=== PATIENT | female | born 1935 | race Asian ===

== ENCOUNTER 2021-11-06 14:48 | Inpatient (IN) | payer MEDICARE, OTHER ==
[~2021-11-06] VITALS: Ht 152.4 cm; Wt 47.2 kg
[~2021-11-06 14:48] MED LIST: ACAR50TA5 PO; ACET-2080 PO; ASPI-2 PO; CHOL20002 PO; CLOP75TA60 PO; GLYB2.5T5 PO; LOVA40TA PO; METF-446 PO; METO-327 PO; RISE150T PO; VALS160T2 PO; VITA400C70 PO
[2021-11-06 17:39] LABS: BASOPHILS % (AUTO) 0.7 % (0.0-2.0); EOSINOPHILS % (AUTO) 1.7 % (1.0-6.0); HEMATOCRIT 33.8 % (36-46); HEMOGLOBIN 11.6 g/dL (12.0-16.0); LYMPHOCYTES # (AUTO) 0.6 K/uL (1.0-4.8); LYMPHOCYTES % (AUTO) 23.6 % (22.0-44.0); MEAN CORPUSCULAR HEMOGLOBIN 32.1 pg (26.0-34.0); MEAN CORPUSCULAR HGB CONC 34.2 G/dL (31.0-37.0); MEAN CORPUSCULAR VOLUME 94 fL (80-100); MONOCYTES # (AUTO) 0.5 K/uL (0.1-1.0); MONOCYTES % (AUTO) 16.5 % (2.0-9.0); NEUTROPHILS # (AUTO) 1.6 K/uL (1.8-7.7); NEUTROPHILS % (AUTO) 57.5 % (40.0-70.0); PLATELET COUNT (AUTO) 126 K/uL (150-450); RED BLOOD CELL COUNT(AUTO) 3.61 MIL/uL (4.00-5.20); RED CELL DISTRIBUTION WIDTH 13.8 % (11.5-14.5)
[2021-11-06 17:40] LABS: COVID AG,FIA SOURCE NASOPHARYNGEAL
[2021-11-06 17:46] LABS: ANION GAP 5 mmol/L (8-16); CALCIUM, TOTAL 9.3 mg/dL (8.8-10.5); CARBON DIOXIDE 26 mmol/L (22-29); CHLORIDE 108 mmol/L (98-107); GLOMERULAR FILTR. RATE CALC > 60 mL/min (>60); GLUCOSE,RANDOM 124 mg/dL (70-110); POTASSIUM 3.4 mmol/L (3.5-5.1); SODIUM SERUM 139 mmol/L (136-145); UREA NITROGEN, BLOOD 17 mg/dL (7-18)
[2021-11-06 17:48] LABS: D-DIMER 0.6 mg/L FEU (0.00-0.50); PROTHROMBIN TIME 10.4 SEC (9.4-11.6)
[2021-11-06 17:53] LABS: LACTIC ACID 0.6 mmol/L (0.4-2.0)
[2021-11-06 18:04] LABS: ALANINE AMINOTRANSFERASE 21 U/L (12-78); ALBUMIN 2.6 g/dL (3.4-5.0); ALKALINE PHOSPHATASE 69 U/L (46-116); ASPARTATE AMINOTRANSFERASE 18 U/L (15-37); BILIRUBIN,TOTAL 0.2 mg/dL (0.1-1.0); FERRITIN 77 ng/mL (8-252); LACTATE DEHYDROGENASE 160 U/L (81-234); LIPASE 166 U/L (73-393); TOTAL PROTEIN, SERUM 5.8 g/dL (6.4-8.2)
[2021-11-06 18:10] LABS: B-TYPE NATRIURETIC PEPTIDE 40 pg/mL (0-100)
[2021-11-06 18:10] LABS: INFLUENZA TYPE A NEGATIVE FOR TYPE A (NEGATIVE); INFLUENZA TYPE B NEGATIVE FOR TYPE B (NEGATIVE)
[2021-11-06] MEDS ORDERED: AZITHROMYCIN 500 MG/NS 250 ML IV ONE (18:30)
[2021-11-06] MEDS ORDERED: CefTRIAXone 1 GM/DEXTROSE 50 ML IV ONE (18:30)
[2021-11-06] MEDS ORDERED: ACETAMINOPHEN 500 MG TABLET PO ONE (18:30)
[2021-11-06] MEDS ORDERED: SODIUM CHLORIDE 0.9% 1,300 ML IV ONE (18:30)
[2021-11-06] MEDS ORDERED: 0.9% SODIUM CHLORIDE 10 ML SYRINGE IVP PRN (18:30)
[2021-11-06 19:06] LABS: APPEARANCE,URINE CLEAR (CLEAR); BILIRUBIN,URINE NEGATIVE (NEGATIVE); GLUCOSE, URINE (UA) NEGATIVE (NEGATIVE); KETONES,URINE NEGATIVE (NEGATIVE); LEUKOCYTE ESTERASE ,URINE NEGATIVE (NEGATIVE); NITRATE,URINE POSITIVE (NEGATIVE); OCCULT BLOOD,URINE NEGATIVE (NEGATIVE); PH,URINE 5.5 (5.0-8.0); PROTEIN,URINE NEGATIVE (NEGATIVE); UROBILINOGEN,URINE 0.2 mg/dL (<=1.0)
[2021-11-06 19:28] LABS: BACTERIA,URINE Moderate /HPF (None Seen); RBC,URINE 0-2 /HPF (0-2); WBC,URINE 0-2 /HPF (0-5)
[2021-11-06 19:29] LABS: SQUAMOUS EPITHELIAL CELL,UR Moderate /LPF (None Seen)
[2021-11-06] MEDS ORDERED: DEXTROSE 50%-WATER 25 GM/50 ML SYRINGE IVP PRN (22:00)
[2021-11-07 04:57] LABS: BASOPHILS % (AUTO) 0.3 % (0.0-2.0); EOSINOPHILS % (AUTO) 0.7 % (1.0-6.0); HEMATOCRIT 35.1 % (36-46); HEMOGLOBIN 11.9 g/dL (12.0-16.0); LYMPHOCYTES # (AUTO) 0.7 K/uL (1.0-4.8); LYMPHOCYTES % (AUTO) 20.8 % (22.0-44.0); MEAN CORPUSCULAR HEMOGLOBIN 32.3 pg (26.0-34.0); MEAN CORPUSCULAR HGB CONC 33.9 G/dL (31.0-37.0); MEAN CORPUSCULAR VOLUME 95 fL (80-100); MONOCYTES # (AUTO) 0.4 K/uL (0.1-1.0); MONOCYTES % (AUTO) 12.4 % (2.0-9.0); NEUTROPHILS # (AUTO) 2.3 K/uL (1.8-7.7); NEUTROPHILS % (AUTO) 65.8 % (40.0-70.0); PLATELET COUNT (AUTO) 114 K/uL (150-450); RED BLOOD CELL COUNT(AUTO) 3.69 MIL/uL (4.00-5.20); RED CELL DISTRIBUTION WIDTH 14.3 % (11.5-14.5)
[2021-11-07 05:34] LABS: ALANINE AMINOTRANSFERASE 17 U/L (12-78); ALBUMIN 2.6 g/dL (3.4-5.0); ALKALINE PHOSPHATASE 59 U/L (46-116); ANION GAP 5 mmol/L (8-16); ASPARTATE AMINOTRANSFERASE 19 U/L (15-37); BILIRUBIN,TOTAL 0.2 mg/dL (0.1-1.0); C-REACTIVE PROTEIN QUANT 0.42 mg/dL (0.00-0.30); CALCIUM, TOTAL 8.8 mg/dL (8.8-10.5); CARBON DIOXIDE 24 mmol/L (22-29); CHLORIDE 112 mmol/L (98-107); CREATININE 0.63 mg/dL (0.60-1.30); FERRITIN 85 ng/mL (8-252); GLUCOSE,RANDOM 117 mg/dL (70-110); POTASSIUM 3.4 mmol/L (3.5-5.1); SODIUM SERUM 141 mmol/L (136-145); TOTAL PROTEIN, SERUM 5.5 g/dL (6.4-8.2); UREA NITROGEN, BLOOD 12 mg/dL (7-18)
[2021-11-07 05:35] LABS: GLOMERULAR FILTR. RATE CALC > 60 mL/min (>60)
[2021-11-07] MEDS ORDERED: ACETAMINOPHEN 160 MG/5 ML SUSPENSION UDCUP PO ONE (05:45)
[2021-11-07] MEDS: ASPIRIN 325 MG TABLET PO SCH (08:13)
[2021-11-07 09:07] VITALS: BP 150/58
[2021-11-07] MEDS ORDERED: MIRT-93 PO (11:18)
[2021-11-07] MEDS ORDERED: HYDR-4174 PO (11:18)
[2021-11-07] MEDS ORDERED: INSNOV SQ (11:18)
[2021-11-07] MEDS ORDERED: AMLO5TAB66 PO (11:18)
[2021-11-07] MEDS ORDERED: RIVA20TA PO (11:18)
[2021-11-07] MEDS ORDERED: INSU3INS3 SQ (11:18)
[2021-11-07] MEDS ORDERED: VITA-244 PO (11:18)
[2021-11-07] MEDS ORDERED: ATOR20TA65 PO (11:18)
[2021-11-07] MEDS ORDERED: CHOL-35 PO (11:18)
[2021-11-07] MEDS ORDERED: TRAZ-252 PO (11:18)
[2021-11-07] MEDS ORDERED: CLON0.2T2 PO (11:18)
[2021-11-07] MEDS: CHOLECALCIFEROL (VIT D3) 1,000 UNITS [25 MCG] TABLET PO SCH (12:10)
[2021-11-07] MEDS: VITAMIN E 400 UNITS CAPSULE PO SCH (12:10)
[2021-11-07] MEDS: ATORVASTATIN CALCIUM 20 MG TABLET PO SCH (12:10)
[2021-11-07] MEDS: VALSARTAN 160 MG TABLET PO SCH (12:10)
[2021-11-07] MEDS: METOPROLOL SUCCINATE 50 MG ER TABLET PO SCH (12:10)
[2021-11-07 12:52] VITALS: BP 156/72
[2021-11-07] MEDS ORDERED: INFLUENZA VIRUS VACCINE QVS 2021-22 (6MO+)/PF 60 MCG/0.5 ML SYRINGE IM. ONE (13:15)
[2021-11-07] MEDS ORDERED: PNEUMOCOCCAL VACCINE POLYVALENT 0.5 ML VIAL [PPSV23] IM. ONE (13:15)
[2021-11-07 16:23] VITALS: BP 135/86
[2021-11-07] MEDS ORDERED: ACARBOSE 50 MG TABLET PO SCH (18:00)
[2021-11-07 20:16] VITALS: BP 107/69
[2021-11-07] MEDS ORDERED: CLOPIDOGREL BISULFATE 75 MG TABLET PO SCH (21:00)
[2021-11-08 00:01] LABS: GLUCOMETER DEV NAME(LOC) 5N.3; GLUCOSE,POINT OF CARE 100 MG/DL (70-110)
[2021-11-08 00:01] LABS: GLUCOMETER DEV NAME(LOC) 5N.3; GLUCOSE,POINT OF CARE 106 MG/DL (70-110)
[2021-11-08 00:02] LABS: GLUCOMETER DEV NAME(LOC) 5N.3; GLUCOSE,POINT OF CARE 169 MG/DL (70-110)
[2021-11-08 00:02] LABS: GLUCOMETER DEV NAME(LOC) 5N.3; GLUCOSE,POINT OF CARE 61 MG/DL (70-110)
[2021-11-08 00:15] VITALS: BP 124/75
[2021-11-08 04:32] VITALS: BP 124/58
[2021-11-08] MEDS ORDERED: POTASSIUM CHLORIDE 20 MEQ ER TABLET PO PRN (07:00)
[2021-11-08] MEDS ORDERED: POTASSIUM CHLORIDE 10% 40 MEQ/30 ML LIQUID UDCUP PO PRN (07:00)
[2021-11-08] MEDS ORDERED: POTASSIUM CHL 10 MEQ/WATER 50 ML IV PRN (07:00)
[2021-11-08] MEDS ORDERED: ACETAMINOPHEN 325 MG TABLET PO PRN (07:00)
[2021-11-08 07:30] VITALS: BP_SYST 131; BP_SYST 145; BP_DIAS 49; BP_DIAS 79
[2021-11-08 08:07] LABS: BASOPHILS % (AUTO) 0.4 % (0.0-2.0); EOSINOPHILS % (AUTO) 1.6 % (1.0-6.0); HEMATOCRIT 34.4 % (36-46); HEMOGLOBIN 11.8 g/dL (12.0-16.0); LYMPHOCYTES # (AUTO) 1.1 K/uL (1.0-4.8); LYMPHOCYTES % (AUTO) 43.7 % (22.0-44.0); MEAN CORPUSCULAR HEMOGLOBIN 32.2 pg (26.0-34.0); MEAN CORPUSCULAR HGB CONC 34.4 G/dL (31.0-37.0); MEAN CORPUSCULAR VOLUME 94 fL (80-100); MONOCYTES # (AUTO) 0.3 K/uL (0.1-1.0); MONOCYTES % (AUTO) 13.7 % (2.0-9.0); NEUTROPHILS % (AUTO) 40.6 % (40.0-70.0); PLATELET COUNT (AUTO) 130 K/uL (150-450); RED BLOOD CELL COUNT(AUTO) 3.67 MIL/uL (4.00-5.20); RED CELL DISTRIBUTION WIDTH 13.9 % (11.5-14.5)
[2021-11-08 08:39] LABS: ALANINE AMINOTRANSFERASE 18 U/L (12-78); ALBUMIN 2.5 g/dL (3.4-5.0); ALKALINE PHOSPHATASE 52 U/L (46-116); ANION GAP 4 mmol/L (8-16); ASPARTATE AMINOTRANSFERASE 20 U/L (15-37); BILIRUBIN,TOTAL 0.2 mg/dL (0.1-1.0); C-REACTIVE PROTEIN QUANT 0.67 mg/dL (0.00-0.30); CALCIUM, TOTAL 8.5 mg/dL (8.8-10.5); CARBON DIOXIDE 26 mmol/L (22-29); CHLORIDE 111 mmol/L (98-107); CREATININE 0.56 mg/dL (0.60-1.30); FERRITIN 121 ng/mL (8-252); POTASSIUM 3.3 mmol/L (3.5-5.1); SODIUM SERUM 141 mmol/L (136-145); TOTAL PROTEIN, SERUM 5.3 g/dL (6.4-8.2); UREA NITROGEN, BLOOD 9 mg/dL (7-18)
[2021-11-08 08:45] LABS: GLUCOSE,RANDOM 46 mg/dL (70-110)
[2021-11-08 08:46] LABS: GLOMERULAR FILTR. RATE CALC > 60 mL/min (>60)
[2021-11-08] MEDS: VALSARTAN 160 MG TABLET PO SCH (08:48)
[2021-11-08] MEDS: CHOLECALCIFEROL (VIT D3) 1,000 UNITS [25 MCG] TABLET PO SCH (08:48)
[2021-11-08] MEDS: ASPIRIN 325 MG TABLET PO SCH (08:48)
[2021-11-08] MEDS: VITAMIN E 400 UNITS CAPSULE PO SCH (08:49)
[2021-11-08] MEDS: ATORVASTATIN CALCIUM 20 MG TABLET PO SCH (08:49)
[2021-11-08] MEDS: METOPROLOL SUCCINATE 50 MG ER TABLET PO SCH (08:49)
[2021-11-08 11:30] VITALS: BP_SYST 130; BP_SYST 140; BP_DIAS 61; BP_DIAS 82
[2021-11-08 16:30] VITALS: BP 131/59
[2021-11-08] MEDS ORDERED: CALC-1038 PO (17:02)
[2021-11-08] MEDS ORDERED: ASCO500 PO (17:02)
[2021-11-08] MEDS ORDERED: ASPI-1450 PO (17:21)
[2021-11-08 17:22] LABS: GLUCOMETER DEV NAME(LOC) 5N.1C; GLUCOSE,POINT OF CARE 116 MG/DL (70-110)
[2021-11-08 17:22] LABS: GLUCOMETER DEV NAME(LOC) 5N.1C; GLUCOSE,POINT OF CARE 46 MG/DL (70-110)
[2021-11-08 19:54] VITALS: BP 123/51
[2021-11-08] MEDS: INSULIN GLARGINE,HUM.REC.ANLOG 100 UNITS/ML SQ SCH (21:00)
[2021-11-08] MEDS: SENNA/DOCUSATE SODIUM 8.6-50 MG TABLET PO SCH (21:00)
[2021-11-08] MEDS: TraZODone HCL 50 MG TABLET PO SCH (21:02)
[2021-11-09 00:13] VITALS: BP 106/56
[2021-11-09 05:31] VITALS: BP 139/61
[2021-11-09 07:10] VITALS: BP 140/65
[2021-11-09 08:11] LABS: BASOPHILS % (AUTO) 0.4 % (0.0-2.0); HEMATOCRIT 36.4 % (36-46); HEMOGLOBIN 12.5 g/dL (12.0-16.0); LYMPHOCYTES # (AUTO) 1.5 K/uL (1.0-4.8); LYMPHOCYTES % (AUTO) 53.7 % (22.0-44.0); MEAN CORPUSCULAR HGB CONC 34.3 G/dL (31.0-37.0); MEAN CORPUSCULAR VOLUME 93 fL (80-100); MONOCYTES # (AUTO) 0.3 K/uL (0.1-1.0); MONOCYTES % (AUTO) 11.2 % (2.0-9.0); NEUTROPHILS # (AUTO) 0.9 K/uL (1.8-7.7); NEUTROPHILS % (AUTO) 32.7 % (40.0-70.0); PLATELET COUNT (AUTO) 130 K/uL (150-450); RED BLOOD CELL COUNT(AUTO) 3.91 MIL/uL (4.00-5.20); RED CELL DISTRIBUTION WIDTH 13.9 % (11.5-14.5)
[2021-11-09 08:34] LABS: ALANINE AMINOTRANSFERASE 21 U/L (12-78); ALBUMIN 2.4 g/dL (3.4-5.0); ALKALINE PHOSPHATASE 58 U/L (46-116); ANION GAP 5 mmol/L (8-16); ASPARTATE AMINOTRANSFERASE 19 U/L (15-37); BILIRUBIN,TOTAL 0.2 mg/dL (0.1-1.0); C-REACTIVE PROTEIN QUANT 0.37 mg/dL (0.00-0.30); CARBON DIOXIDE 24 mmol/L (22-29); CHLORIDE 109 mmol/L (98-107); CREATININE 0.71 mg/dL (0.60-1.30); FERRITIN 109 ng/mL (8-252); GLUCOSE,RANDOM 134 mg/dL (70-110); POTASSIUM 3.9 mmol/L (3.5-5.1); SODIUM SERUM 138 mmol/L (136-145); TOTAL PROTEIN, SERUM 5.4 g/dL (6.4-8.2); UREA NITROGEN, BLOOD 11 mg/dL (7-18)
[2021-11-09 08:38] LABS: GLOMERULAR FILTR. RATE CALC > 60 mL/min (>60)
[2021-11-09] MEDS: TIOTROPIUM BROMIDE 18 MCG/INH HANDIHALER [5] IH SCH (09:00)
[2021-11-09] MEDS: INSULIN GLARGINE,HUM.REC.ANLOG 100 UNITS/ML SQ SCH ×2 (09:00→21:00)
[2021-11-09] MEDS ORDERED: CALCIUM CARBONATE 500 MG TABLET PO SCH (09:00)
[2021-11-09] MEDS: VITAMIN E 400 UNITS CAPSULE PO SCH (11:16)
[2021-11-09] MEDS: AmLODIPine BESYLATE 5 MG TABLET PO SCH ×3 (11:16→23:28)
[2021-11-09] MEDS: ASPIRIN 81 MG CHEWABLE TABLET PO SCH (11:17)
[2021-11-09] MEDS: HydrALAZINE HCL 50 MG TABLET PO SCH ×3 (11:17→23:27)
[2021-11-09] MEDS: CALCIUM CARBONATE 500 MG TABLET PO SCH (11:18)
[2021-11-09] MEDS: ASCORBIC ACID 500 MG TABLET PO SCH (11:18)
[2021-11-09] MEDS: MULTIVITAMINS WITH MINERALS, THERAPEUTIC TABLET PO SCH (11:18)
[2021-11-09] MEDS: CHOLECALCIFEROL (VIT D3) 1,000 UNITS [25 MCG] TABLET PO SCH (11:21)
[2021-11-09 11:37] VITALS: BP 144/59
[2021-11-09 11:46] LABS: GLUCOMETER DEV NAME(LOC) 5N.3; GLUCOSE,POINT OF CARE 118 MG/DL (70-110)
[2021-11-09 11:46] LABS: GLUCOMETER DEV NAME(LOC) 5N.3; GLUCOSE,POINT OF CARE 155 MG/DL (70-110)
[2021-11-09 11:46] LABS: GLUCOMETER DEV NAME(LOC) 5N.3; GLUCOSE,POINT OF CARE 109 MG/DL (70-110)
[2021-11-09 15:46] VITALS: BP 149/60
[2021-11-09 16:06] LABS: GLUCOMETER DEV NAME(LOC) 5S.2B; GLUCOSE,POINT OF CARE 140 MG/DL (70-110)
[2021-11-09 16:07] LABS: GLUCOMETER DEV NAME(LOC) 5S.2B; GLUCOSE,POINT OF CARE 186 MG/DL (70-110)
[2021-11-09 19:21] VITALS: BP 126/68
[2021-11-09] MEDS ORDERED: CloNIDine HCL 0.2 MG TABLET PO SCH (21:00)
[2021-11-09] MEDS: MIRTAZAPINE 30 MG TABLET PO SCH (21:23)
[2021-11-09] MEDS: TraZODone HCL 50 MG TABLET PO SCH (21:23)
[2021-11-09] MEDS: ATORVASTATIN CALCIUM 20 MG TABLET PO SCH (21:23)
[2021-11-09] MEDS: SENNA/DOCUSATE SODIUM 8.6-50 MG TABLET PO SCH (21:24)
[2021-11-09 23:32] LABS: GLUCOMETER DEV NAME(LOC) 5S.1; GLUCOSE,POINT OF CARE 136 MG/DL (70-110)
[2021-11-09 23:32] LABS: GLUCOMETER DEV NAME(LOC) 5S.2B; GLUCOSE,POINT OF CARE 141 MG/DL (70-110)
[2021-11-10] VITALS (8 sets, daily range): BP systolic 88–122; BP diastolic 48–68
[2021-11-10] MEDS: CALCIUM CARBONATE 500 MG TABLET PO SCH (08:34)
[2021-11-10] MEDS: CHOLECALCIFEROL (VIT D3) 1,000 UNITS [25 MCG] TABLET PO SCH (08:34)
[2021-11-10] MEDS: ASPIRIN 81 MG CHEWABLE TABLET PO SCH (08:34)
[2021-11-10] MEDS: MULTIVITAMINS WITH MINERALS, THERAPEUTIC TABLET PO SCH (08:34)
[2021-11-10] MEDS: ASCORBIC ACID 500 MG TABLET PO SCH (08:34)
[2021-11-10] MEDS: VITAMIN E 400 UNITS CAPSULE PO SCH (08:34)
[2021-11-10] MEDS: TIOTROPIUM BROMIDE 18 MCG/INH HANDIHALER [5] IH SCH (09:00)
[2021-11-10] MEDS: INSULIN GLARGINE,HUM.REC.ANLOG 100 UNITS/ML SQ SCH (09:00)
[2021-11-10] MEDS: HydrALAZINE HCL 50 MG TABLET PO SCH ×2 (09:00→21:00)
[2021-11-10] MEDS: AmLODIPine BESYLATE 5 MG TABLET PO SCH ×2 (09:00→21:00)
[2021-11-10] MEDS ORDERED: ATOR20TA86 PO (10:42)
[2021-11-10] MEDS ORDERED: MIRT30 PO (10:42)
[2021-11-10] MEDS ORDERED: HYDR50TA36 PO (10:42)
[2021-11-10] MEDS ORDERED: OS500 PO (10:42)
[2021-11-10] MEDS ORDERED: AMLO-257 PO (10:42)
[2021-11-10 11:19] LABS: BASOPHILS % (AUTO) 0.6 % (0.0-2.0); EOSINOPHILS % (AUTO) 4.1 % (1.0-6.0); HEMATOCRIT 32.6 % (36-46); HEMOGLOBIN 11.3 g/dL (12.0-16.0); LYMPHOCYTES # (AUTO) 1.5 K/uL (1.0-4.8); LYMPHOCYTES % (AUTO) 58.1 % (22.0-44.0); MEAN CORPUSCULAR HEMOGLOBIN 32.2 pg (26.0-34.0); MEAN CORPUSCULAR HGB CONC 34.6 G/dL (31.0-37.0); MEAN CORPUSCULAR VOLUME 93 fL (80-100); MONOCYTES # (AUTO) 0.3 K/uL (0.1-1.0); MONOCYTES % (AUTO) 12.1 % (2.0-9.0); NEUTROPHILS # (AUTO) 0.7 K/uL (1.8-7.7); NEUTROPHILS % (AUTO) 25.1 % (40.0-70.0); PLATELET COUNT (AUTO) 116 K/uL (150-450); RED BLOOD CELL COUNT(AUTO) 3.49 MIL/uL (4.00-5.20)
[2021-11-10 11:37] LABS: D-DIMER 1.21 mg/L FEU (0.00-0.50)
[2021-11-10 11:53] LABS: ALBUMIN 2.3 g/dL (3.4-5.0); BILIRUBIN,TOTAL 0.2 mg/dL (0.1-1.0); CALCIUM, TOTAL 9.2 mg/dL (8.8-10.5); CREATININE 0.91 mg/dL (0.60-1.30); POTASSIUM 4.3 mmol/L (3.5-5.1)
[2021-11-10 12:26] LABS: C-REACTIVE PROTEIN QUANT 0.13 mg/dL (0.00-0.30)
[2021-11-10 12:47] LABS: GLUCOMETER DEV NAME(LOC) 5S.1; GLUCOSE,POINT OF CARE 126 MG/DL (70-110)
[2021-11-10] MEDS ORDERED: SODIUM CHLORIDE 0.9% 100 ML ONE (17:29)
[2021-11-10] MEDS: CefTRIAXone 1 GM/DEXTROSE 50 ML IV SCH (18:04)
[2021-11-10 18:34] LABS: ALANINE AMINOTRANSFERASE 16 U/L (12-78); ALBUMIN 2.2 g/dL (3.4-5.0); ALKALINE PHOSPHATASE 52 U/L (46-116); ANION GAP 3 mmol/L (8-16); ASPARTATE AMINOTRANSFERASE 15 U/L (15-37); BILIRUBIN,TOTAL 0.2 mg/dL (0.1-1.0); C-REACTIVE PROTEIN QUANT 0.14 mg/dL (0.00-0.30); CALCIUM, TOTAL 9.3 mg/dL (8.8-10.5); CARBON DIOXIDE 29 mmol/L (22-29); CHLORIDE 111 mmol/L (98-107); CREATININE 0.77 mg/dL (0.60-1.30); GLOMERULAR FILTR. RATE CALC > 60 mL/min (>60); GLUCOSE,RANDOM 123 mg/dL (70-110); LACTATE DEHYDROGENASE 135 U/L (81-234); POTASSIUM 4.2 mmol/L (3.5-5.1); SODIUM SERUM 143 mmol/L (136-145); TOTAL PROTEIN, SERUM 4.9 g/dL (6.4-8.2); UREA NITROGEN, BLOOD 15 mg/dL (7-18)
[2021-11-10 18:37] LABS: BASOPHILS % (AUTO) 0.7 % (0.0-2.0); EOSINOPHILS % (AUTO) 4.8 % (1.0-6.0); HEMATOCRIT 33.4 % (36-46); HEMOGLOBIN 11.5 g/dL (12.0-16.0); LYMPHOCYTES # (AUTO) 1.4 K/uL (1.0-4.8); LYMPHOCYTES % (AUTO) 65.2 % (22.0-44.0); MEAN CORPUSCULAR HEMOGLOBIN 32.2 pg (26.0-34.0); MEAN CORPUSCULAR HGB CONC 34.3 G/dL (31.0-37.0); MEAN CORPUSCULAR VOLUME 94 fL (80-100); MONOCYTES # (AUTO) 0.2 K/uL (0.1-1.0); MONOCYTES % (AUTO) 9.9 % (2.0-9.0); NEUTROPHILS # (AUTO) 0.4 K/uL (1.8-7.7); NEUTROPHILS % (AUTO) 19.4 % (40.0-70.0); PLATELET COUNT (AUTO) 115 K/uL (150-450); RED BLOOD CELL COUNT(AUTO) 3.56 MIL/uL (4.00-5.20); RED CELL DISTRIBUTION WIDTH 13.8 % (11.5-14.5)
[2021-11-10 18:44] LABS: APPEARANCE,URINE CLEAR (CLEAR); BILIRUBIN,URINE NEGATIVE (NEGATIVE); GLUCOSE, URINE (UA) NEGATIVE (NEGATIVE); KETONES,URINE NEGATIVE (NEGATIVE); LEUKOCYTE ESTERASE ,URINE NEGATIVE (NEGATIVE); NITRATE,URINE NEGATIVE (NEGATIVE); OCCULT BLOOD,URINE NEGATIVE (NEGATIVE); PROTEIN,URINE NEGATIVE (NEGATIVE); UROBILINOGEN,URINE 0.2 mg/dL (<=1.0)
[2021-11-10 19:23] LABS: FERRITIN 98 ng/mL (8-252)
[2021-11-10] MEDS: MIRTAZAPINE 30 MG TABLET PO SCH (21:04)
[2021-11-10] MEDS: ATORVASTATIN CALCIUM 20 MG TABLET PO SCH (21:04)
[2021-11-10] MEDS: SENNA/DOCUSATE SODIUM 8.6-50 MG TABLET PO SCH (21:05)
[2021-11-10] MEDS: TraZODone HCL 50 MG TABLET PO SCH (21:06)
[2021-11-10] MEDS: INSULIN LISPRO 100 UNITS/ML SQ PRN (21:08)
[2021-11-11 00:13] VITALS: BP 92/55
[2021-11-11 04:21] VITALS: BP 136/56
[2021-11-11 06:10] LABS: BASOPHILS % (AUTO) 0.5 % (0.0-2.0); EOSINOPHILS % (AUTO) 4.5 % (1.0-6.0); HEMATOCRIT 34.5 % (36-46); HEMOGLOBIN 11.8 g/dL (12.0-16.0); LYMPHOCYTES # (AUTO) 1.4 K/uL (1.0-4.8); LYMPHOCYTES % (AUTO) 46.8 % (22.0-44.0); MEAN CORPUSCULAR HGB CONC 34.3 G/dL (31.0-37.0); MEAN CORPUSCULAR VOLUME 93 fL (80-100); MONOCYTES # (AUTO) 0.3 K/uL (0.1-1.0); MONOCYTES % (AUTO) 8.7 % (2.0-9.0); NEUTROPHILS # (AUTO) 1.2 K/uL (1.8-7.7); NEUTROPHILS % (AUTO) 39.5 % (40.0-70.0); PLATELET COUNT (AUTO) 120 K/uL (150-450)
[2021-11-11 07:12] LABS: ALANINE AMINOTRANSFERASE 17 U/L (12-78); ALBUMIN 2.4 g/dL (3.4-5.0); ALKALINE PHOSPHATASE 56 U/L (46-116); ANION GAP 8 mmol/L (8-16); ASPARTATE AMINOTRANSFERASE 16 U/L (15-37); BILIRUBIN,TOTAL 0.2 mg/dL (0.1-1.0); C-REACTIVE PROTEIN QUANT 0.17 mg/dL (0.00-0.30); CALCIUM, TOTAL 9.4 mg/dL (8.8-10.5); CARBON DIOXIDE 27 mmol/L (22-29); CHLORIDE 111 mmol/L (98-107); CHOL/HDL RATIO 2.3 (3.9-5.7); CHOLESTEROL 97 mg/dL (131-200); CREATININE 0.78 mg/dL (0.60-1.30); FERRITIN 101 ng/mL (8-252); GLOMERULAR FILTR. RATE CALC > 60 mL/min (>60); GLUCOSE,RANDOM 101 mg/dL (70-110); HDL CHOLESTEROL 42 mg/dL (40-60); LDL CHOL (CALC.) 45 mg/dL (0-130); POTASSIUM 4.2 mmol/L (3.5-5.1); SODIUM SERUM 146 mmol/L (136-145); TOTAL PROTEIN, SERUM 5.2 g/dL (6.4-8.2); TRIGLYCERIDES 51 mg/dL (15-150); UREA NITROGEN, BLOOD 18 mg/dL (7-18)
[2021-11-11 08:21] VITALS: BP 142/61
[2021-11-11 08:26] LABS: GLUCOMETER DEV NAME(LOC) 5S.1; GLUCOSE,POINT OF CARE 161 MG/DL (70-110)
[2021-11-11 08:26] LABS: GLUCOMETER DEV NAME(LOC) 5S.2B; GLUCOSE,POINT OF CARE 115 MG/DL (70-110)
[2021-11-11 08:26] LABS: GLUCOMETER DEV NAME(LOC) 5S.1; GLUCOSE,POINT OF CARE 106 MG/DL (70-110)
[2021-11-11 08:26] LABS: GLUCOMETER DEV NAME(LOC) 5S.1; GLUCOSE,POINT OF CARE 114 MG/DL (70-110)
[2021-11-11] MEDS: VITAMIN E 400 UNITS CAPSULE PO SCH (08:26)
[2021-11-11] MEDS: CHOLECALCIFEROL (VIT D3) 1,000 UNITS [25 MCG] TABLET PO SCH (08:27)
[2021-11-11] MEDS: ASCORBIC ACID 500 MG TABLET PO SCH (08:28)
[2021-11-11] MEDS: TIOTROPIUM BROMIDE 18 MCG/INH HANDIHALER [5] IH SCH (08:28)
[2021-11-11] MEDS: CALCIUM CARBONATE 500 MG TABLET PO SCH (08:28)
[2021-11-11] MEDS: MULTIVITAMINS WITH MINERALS, THERAPEUTIC TABLET PO SCH (08:28)
[2021-11-11] MEDS: AmLODIPine BESYLATE 5 MG TABLET PO SCH ×2 (08:29→21:00)
[2021-11-11] MEDS: ASPIRIN 81 MG CHEWABLE TABLET PO SCH (08:30)
[2021-11-11] MEDS: HydrALAZINE HCL 50 MG TABLET PO SCH ×2 (08:30→20:44)
[2021-11-11 10:44] VITALS: BP 129/62
[2021-11-11] MEDS: RIVAROXABAN 20 MG TABLET PO SCH (17:44)
[2021-11-11] MEDS: CefTRIAXone 1 GM/DEXTROSE 50 ML IV SCH (17:44)
[2021-11-11 18:25] VITALS: BP 122/60
[2021-11-11 20:05] VITALS: BP 112/56
[2021-11-11 20:22] LABS: GLUCOMETER DEV NAME(LOC) 5S.1; GLUCOSE,POINT OF CARE 108 MG/DL (70-110)
[2021-11-11 20:22] LABS: GLUCOMETER DEV NAME(LOC) 5N.1C; GLUCOSE,POINT OF CARE 95 MG/DL (70-110)
[2021-11-11] MEDS: SENNA/DOCUSATE SODIUM 8.6-50 MG TABLET PO SCH (20:43)
[2021-11-11] MEDS: ETHYL ALCOHOL 62% ANTISEPTIC NASAL INHALANT 0.6 ML AMPUL NASAL SCH (20:43)
[2021-11-11] MEDS: TraZODone HCL 50 MG TABLET PO SCH (20:43)
[2021-11-11] MEDS: MIRTAZAPINE 30 MG TABLET PO SCH (20:44)
[2021-11-11] MEDS: ATORVASTATIN CALCIUM 20 MG TABLET PO SCH (20:44)
[2021-11-11 23:31] LABS: GLUCOMETER DEV NAME(LOC) 5N.1C; GLUCOSE,POINT OF CARE 136 MG/DL (70-110)
[2021-11-12 00:20] VITALS: BP 114/66
[2021-11-12] MEDS: DEXTROSE 5%-WATER 1,000 ML IV SCH ×2 (00:31→14:10)
[2021-11-12 04:16] VITALS: BP 118/60
[2021-11-12] MEDS: INSULIN LISPRO 100 UNITS/ML SQ PRN ×2 (06:09→19:33)
[2021-11-12 07:44] VITALS: BP 126/62
[2021-11-12 08:15] LABS: BASOPHILS % (AUTO) 0.4 % (0.0-2.0); HEMATOCRIT 33.4 % (36-46); HEMOGLOBIN 11.6 g/dL (12.0-16.0); LYMPHOCYTES # (AUTO) 0.9 K/uL (1.0-4.8); LYMPHOCYTES % (AUTO) 35.2 % (22.0-44.0); MEAN CORPUSCULAR HEMOGLOBIN 32.3 pg (26.0-34.0); MEAN CORPUSCULAR HGB CONC 34.8 G/dL (31.0-37.0); MEAN CORPUSCULAR VOLUME 93 fL (80-100); MONOCYTES # (AUTO) 0.2 K/uL (0.1-1.0); MONOCYTES % (AUTO) 6.7 % (2.0-9.0); NEUTROPHILS # (AUTO) 1.4 K/uL (1.8-7.7); NEUTROPHILS % (AUTO) 54.7 % (40.0-70.0); PLATELET COUNT (AUTO) 110 K/uL (150-450); RED CELL DISTRIBUTION WIDTH 13.7 % (11.5-14.5)
[2021-11-12] MEDS: CHOLECALCIFEROL (VIT D3) 1,000 UNITS [25 MCG] TABLET PO SCH (08:27)
[2021-11-12] MEDS: HydrALAZINE HCL 50 MG TABLET PO SCH ×2 (08:27→20:09)
[2021-11-12] MEDS: ASCORBIC ACID 500 MG TABLET PO SCH (08:27)
[2021-11-12] MEDS: CALCIUM CARBONATE 500 MG TABLET PO SCH (08:27)
[2021-11-12] MEDS: ASPIRIN 81 MG CHEWABLE TABLET PO SCH (08:28)
[2021-11-12] MEDS: AmLODIPine BESYLATE 5 MG TABLET PO SCH ×2 (08:28→20:07)
[2021-11-12] MEDS: MULTIVITAMINS WITH MINERALS, THERAPEUTIC TABLET PO SCH (08:28)
[2021-11-12] MEDS: TIOTROPIUM BROMIDE 18 MCG/INH HANDIHALER [5] IH SCH (08:30)
[2021-11-12] MEDS: VITAMIN E 400 UNITS CAPSULE PO SCH (08:30)
[2021-11-12] MEDS: ETHYL ALCOHOL 62% ANTISEPTIC NASAL INHALANT 0.6 ML AMPUL NASAL SCH ×2 (08:31→20:09)
[2021-11-12 08:50] LABS: ALANINE AMINOTRANSFERASE 15 U/L (12-78); ALBUMIN 2.3 g/dL (3.4-5.0); ALKALINE PHOSPHATASE 58 U/L (46-116); ANION GAP 4 mmol/L (8-16); ASPARTATE AMINOTRANSFERASE 14 U/L (15-37); BILIRUBIN,TOTAL 0.3 mg/dL (0.1-1.0); C-REACTIVE PROTEIN QUANT 0.57 mg/dL (0.00-0.30); CALCIUM, TOTAL 8.9 mg/dL (8.8-10.5); CARBON DIOXIDE 27 mmol/L (22-29); CHLORIDE 108 mmol/L (98-107); CREATININE 0.72 mg/dL (0.60-1.30); FERRITIN 118 ng/mL (8-252); GLUCOSE,RANDOM 163 mg/dL (70-110); POTASSIUM 3.9 mmol/L (3.5-5.1); SODIUM SERUM 139 mmol/L (136-145); TOTAL PROTEIN, SERUM 5.3 g/dL (6.4-8.2); UREA NITROGEN, BLOOD 15 mg/dL (7-18)
[2021-11-12 08:53] LABS: GLOMERULAR FILTR. RATE CALC > 60 mL/min (>60)
[2021-11-12 10:24] VITALS: BP 112/68
[2021-11-12 14:43] VITALS: BP 122/70
[2021-11-12 15:41] LABS: GLUCOMETER DEV NAME(LOC) 5S.1; GLUCOSE,POINT OF CARE 131 MG/DL (70-110)
[2021-11-12] MEDS: CefTRIAXone 1 GM/DEXTROSE 50 ML IV SCH (18:17)
[2021-11-12] MEDS: RIVAROXABAN 20 MG TABLET PO SCH (18:18)
[2021-11-12 18:56] LABS: GLUCOMETER DEV NAME(LOC) 5S.2B; GLUCOSE,POINT OF CARE 174 MG/DL (70-110)
[2021-11-12 18:57] LABS: GLUCOMETER DEV NAME(LOC) 5S.2B; GLUCOSE,POINT OF CARE 157 MG/DL (70-110)
[2021-11-12 20:00] VITALS: BP 128/70
[2021-11-12] MEDS: MIRTAZAPINE 30 MG TABLET PO SCH (20:06)
[2021-11-12] MEDS: SENNA/DOCUSATE SODIUM 8.6-50 MG TABLET PO SCH (20:06)
[2021-11-12] MEDS: TraZODone HCL 50 MG TABLET PO SCH (20:07)
[2021-11-12] MEDS: ATORVASTATIN CALCIUM 20 MG TABLET PO SCH (20:07)
[2021-11-12 23:31] LABS: GLUCOMETER DEV NAME(LOC) 5S.2B; GLUCOSE,POINT OF CARE 133 MG/DL (70-110)
[2021-11-13 00:15] VITALS: BP 136/60
[2021-11-13 04:25] VITALS: BP 123/58
[2021-11-13 06:01] LABS: GLUCOMETER DEV NAME(LOC) 5S.2B; GLUCOSE,POINT OF CARE 169 MG/DL (70-110)
[2021-11-13] MEDS: INSULIN LISPRO 100 UNITS/ML SQ PRN ×2 (06:23→12:39)
[2021-11-13 06:50] LABS: BASOPHILS % (AUTO) 0.4 % (0.0-2.0); EOSINOPHILS % (AUTO) 1.5 % (1.0-6.0); HEMATOCRIT 36.6 % (36-46); HEMOGLOBIN 12.5 g/dL (12.0-16.0); LYMPHOCYTES # (AUTO) 1.1 K/uL (1.0-4.8); MEAN CORPUSCULAR HEMOGLOBIN 31.7 pg (26.0-34.0); MEAN CORPUSCULAR HGB CONC 34.1 G/dL (31.0-37.0); MEAN CORPUSCULAR VOLUME 93 fL (80-100); MONOCYTES # (AUTO) 0.3 K/uL (0.1-1.0); MONOCYTES % (AUTO) 7.6 % (2.0-9.0); NEUTROPHILS # (AUTO) 2.8 K/uL (1.8-7.7); NEUTROPHILS % (AUTO) 65.5 % (40.0-70.0); PLATELET COUNT (AUTO) 116 K/uL (150-450); RED BLOOD CELL COUNT(AUTO) 3.93 MIL/uL (4.00-5.20)
[2021-11-13 07:08] LABS: ALANINE AMINOTRANSFERASE 16 U/L (12-78); ALBUMIN 2.6 g/dL (3.4-5.0); ALKALINE PHOSPHATASE 65 U/L (46-116); ANION GAP 9 mmol/L (8-16); ASPARTATE AMINOTRANSFERASE 15 U/L (15-37); BILIRUBIN,TOTAL 0.3 mg/dL (0.1-1.0); C-REACTIVE PROTEIN QUANT 1.04 mg/dL (0.00-0.30); CALCIUM, TOTAL 9.3 mg/dL (8.8-10.5); CARBON DIOXIDE 27 mmol/L (22-29); CHLORIDE 108 mmol/L (98-107); CREATININE 0.67 mg/dL (0.60-1.30); FERRITIN 150 ng/mL (8-252); GLUCOSE,RANDOM 191 mg/dL (70-110); POTASSIUM 3.9 mmol/L (3.5-5.1); SODIUM SERUM 144 mmol/L (136-145); TOTAL PROTEIN, SERUM 5.9 g/dL (6.4-8.2); UREA NITROGEN, BLOOD 9 mg/dL (7-18)
[2021-11-13 07:23] LABS: GLOMERULAR FILTR. RATE CALC > 60 mL/min (>60)
[2021-11-13 08:00] VITALS: BP 116/62
[2021-11-13] MEDS: TIOTROPIUM BROMIDE 18 MCG/INH HANDIHALER [5] IH SCH (08:31)
[2021-11-13] MEDS: ETHYL ALCOHOL 62% ANTISEPTIC NASAL INHALANT 0.6 ML AMPUL NASAL SCH (08:32)
[2021-11-13] MEDS: HydrALAZINE HCL 50 MG TABLET PO SCH (08:32)
[2021-11-13] MEDS: CALCIUM CARBONATE 500 MG TABLET PO SCH (08:33)
[2021-11-13] MEDS: AmLODIPine BESYLATE 5 MG TABLET PO SCH (08:33)
[2021-11-13] MEDS: ASPIRIN 81 MG CHEWABLE TABLET PO SCH (08:33)
[2021-11-13] MEDS: CHOLECALCIFEROL (VIT D3) 1,000 UNITS [25 MCG] TABLET PO SCH (08:33)
[2021-11-13] MEDS: ASCORBIC ACID 500 MG TABLET PO SCH (08:34)
[2021-11-13] MEDS: VITAMIN E 400 UNITS CAPSULE PO SCH (09:23)
[2021-11-13] MEDS: MULTIVITAMINS WITH MINERALS, THERAPEUTIC TABLET PO SCH (09:35)
[2021-11-13 11:17] VITALS: BP 124/68
[2021-11-13 12:37] LABS: COVID AG,FIA SOURCE NASAL SWAB
[2021-11-13 18:06] LABS: GLUCOMETER DEV NAME(LOC) 5N.1C; GLUCOSE,POINT OF CARE 147 MG/DL (70-110)
[2021-12-04] MEDS ORDERED: [UNRECOGNIZED DRUG - OTHER] PO SCH (09:00)
== END 2021-11-13 14:55 | DRG 177 ==
LOC: EMS 14:50 → 5N 11-07 06:14
PROVIDERS: ADMIT Hospitalist; ATTEND Hospitalist
DX: U07.1 COVID-19 (principal); E43 Unspecified severe protein-calorie malnutrition; E87.1 Hypo-osmolality and hyponatremia; D61.818 Other pancytopenia; E11.9 Type 2 diabetes mellitus without complications; R13.10 Dysphagia, unspecified; M81.0 Age-related osteoporosis without current pathological fracture; E87.6 Hypokalemia; E78.00 Pure hypercholesterolemia, unspecified; R32 Unspecified urinary incontinence; I10 Essential (primary) hypertension; E78.5 Hyperlipidemia, unspecified; I69.30 Unspecified sequelae of cerebral infarction; Z74.01 Bed confinement status; Z68.20 Body mass index [BMI] 20.0-20.9, adult
CPT/HCPCS: 71045; 80053; 80061; 81001; 81003; 82728; 82962; 83605; 83615; 83690; 83735; 83880; 84132; 84145; 84484; 85025; 85379; 85384; 85610; 85730; 86140; 87040; 87081; 87086; 87804; 93005; 99291; J0456; J0696; J1815; J7040; J7050; J7060; 36415-L1; 36415-TC; U0003